=== PATIENT | female | born 2000 | race Caucasian/White ===

== ENCOUNTER 2025-08-16 10:40 | Outpatient (CLI) | payer OTHER, SELFPAY ==
--- NOTE | ~2025-08-16 | US_ITS ---
EXAMINATION: US pelvic complete w TV DATE: 08/16/2025 11:05 INDICATION: Pelvic and perineal pain. TECHNIQUE: Multiple transabdominal and transvaginal sonographic images of the pelvis were obtained. COMPARISON: None. FINDINGS: TRANSABDOMINAL ULTRASOUND: The uterus measures 8.2 x 4.8 x 3.4 cm. There is no free fluid in the pelvis. TRANSVAGINAL ULTRASOUND: The endometrial complex measures 9 mm in thickness. The right ovary measures 2.6 x 2.2 x 2.7 cm. The left ovary measures 2.6 x 2.8 x 1.4 cm. There is normal vascular flow in the ovaries. IMPRESSION: 1. Normal pelvis. Reviewed, dictated and finalized at location E. IMPRESSION: 1. Normal pelvis.
== END 2025-08-16 10:41 | disposition home or self-care (01) ==
LOC: GOSHIMG 10:42
PROVIDERS: PCP Nurse Practitioner Family; Visit Provider Nurse Practitioner Family
DX: R10.20 Pelvic and perineal pain unspecified side (principal)
CPT/HCPCS: 76830; 76856

== ENCOUNTER 2025-10-11 10:52 | Emergency (ER) | payer OTHER, SELFPAY ==
[2025-10-11 11:03] VITALS: BP 119/76; PULSE 93; RESP 16; TEMP 36.9; O2SAT 100
--- NOTE | 2025-10-11 11:28 | ED.URI ---
HPI - URI/Sore Throat General Chief Complaint: Upper Respiratory Infection Stated Complaint: COUGH/CONGESTION/SINUS PRESSURE Time Seen by Provider: 10/11/25 11:15 Source: patient and RN notes reviewed Mode of arrival: ambulatory Limitations: no limitations History of Present Illness HPI Narrative: 25-year-old female patient presents [facility] complaining of upper respiratory symptoms for 1 week. Patient reports symptoms are worsening. Patient reports worsening sinus pressure, mucopurulent nasal drainage, cough. Patient denies any other upper respiratory symptoms, fevers, eczema chills, nausea vomiting, diarrhea, chest pain, difficulty breathing, or any other symptoms. Patient has been taking Mucinex without relief. Related Data Allergies Allergy/AdvReac Type Severity Reaction Status Date / Time amoxicillin (From Augmentin) Allergy Intermediate Rash Verified 10/11/25 11:06 clavulanic acid (From Allergy Intermediate Rash Verified 10/11/25 11:06 Augmentin) Penicillins Allergy Intermediate Hives Verified 10/11/25 11:06 Review of Systems Review of Systems: CONSTITUTIONAL: Denies fever, chills, body aches, or sweats. EYES: Denies visual changes, redness, or discharge. ENT: Positive for rhinorrhea, congestion. Negative for sore throat, or otalgia. CARDIOVASCULAR: Denies chest pain, palpitations, or edema. RESPIRATORY: Positive for cough. Negative for dyspnea. GASTROINTESTINAL: Denies abdominal pain, nausea, vomiting, or diarrhea. GENITOURINARY: Denies dysuria or hematuria. SKIN: Denies rash or itching. MUSCULOSKELETAL: Denies back pain, joint pain, or myalgia. NEUROLOGIC: Denies headache, numbness, or weakness. PSYCHIATRIC: Denies anxiety or depression. All other systems reviewed are negative, except as documented in HPI. [facility] Past Medical History Medical History History of lipoma Allergies Family History Family History Mother Depression Anxiety Father Diabetes mellitus Sibling Depression Anxiety Grandparent Diabetes mellitus Heart disease History of cancer Thyroid disorder Alcoholism Breast cancer Other Carcinoma of colon Celiac disease Clotting disorder POTS (postural orthostatic tachycardia syndrome) Pancreatic cancer Social History Social History Smoking status: Never smoker Alcohol intake: current Drinks per week: 4 Substance use: never Substance use type: does not use Lack of Transportation: No Lack of Food: Never True Current Housing: I Have Housing Concerned About Future Housing: No Difficulty Paying Gas/Electric Bills: No Difficulty Paying for Meds: No Currently Unemployed: No Education: Bachelor's Degree Difficulty w/ Childcare or Family Care: No Comments At the time of my signature, I reviewed and agree with the nursing past medical, surgical, social, and family history. There is no relevant family history pertinent to the patient complaint. Exam Narrative: GENERAL: This is a well-nourished, well-developed adult, in no apparent distress. They are non ill-appearing, nontoxic appearing. HEAD: normocephalic, atraumatic. EYES: Sclera clear/white. Vision is grossly intact. Conjunctiva normal bilaterally. Extraocular movements intact. EARS: External ears normal, auditory canals clear and without drainage, TMs without erythema or perforation. Hearing grossly intact. NOSE: External nose normal with no obvious nasal discharge, nasal turbinates erythematous, no rhinorrhea. Maxillary and frontal sinus tenderness to palpation. THROAT: Mucous membranes moist, posterior pharynx erythematous without exudate. Uvula is midline. Postnasal drip present. NECK: Neck supple, non-tender without lymphadenopathy, masses or thyromegaly. CARDIOVASCULAR: Regular rate and rhythm without murmurs, gallops, or rubs. RESPIRATORY: Clear to auscultation. Breath sounds equal bilaterally. No wheezes, rales, or rhonchi. SKIN: warm, Dry, intact with no suspicious lesions or rash, good texture and turgor. NEURO: awake, alert, and oriented to person, place and time. There were no obvious focal neurologic abnormalities. EXTREMITIES: No joint tenderness, effusion, or edema noted. BACK: Nontender without deformity. Course Course Level of Care: Express Care Visit Vital Signs Vital signs: Vital Signs Temperature 98.4 F 10/11/25 11:03 Pulse Rate 93 10/11/25 11:03 Respiratory Rate 16 10/11/25 11:03 Blood Pressure 119/76 10/11/25 11:03 Pulse Oximetry 100 10/11/25 11:03 Temperature 98.4 F 10/11/25 11:03 Pulse Rate 93 10/11/25 11:03 Respiratory Rate 16 10/11/25 11:03 Blood Pressure 119/76 10/11/25 11:03 Pulse Oximetry 100 10/11/25 11:03 MDM MDM Narrative Medical decision making narrative: Given patient's length of symptoms and worsening symptoms, likely has a bacterial sinusitis. Will treat with doxycycline given allergy to penicillins. Discussed physical exam findings. Advised supportive measures and signs/symptoms to go to the ER. Pt is appropriate for outpt treatment and f/u. Differential Diagnosis Differential Diagnosis: Differential diagnostic considerations for upper respiratory infection include upper respiratory infection, croup, otitis media, sinusitis, viral infection, bronchitis, influenza, pharyngitis, strep, uvulitis. Discharge Plan Discharge Clinical Impression: Sinusitis Qualifiers: Sinusitis location: unspecified location Chronicity: acute Recurrence: non-recurrent Qualified Code(s): J01.90 - Acute sinusitis, unspecified Patient Disposition: Home Condition: Stable Instructions: Antibiotic Form, Sinusitis (ED) Additional Instructions: Take the antibiotics as directed and complete the course even if you start to feel better. You may use a Neti pot saline rinse 3 times a day with lukewarm distilled water Continue to take Tylenol or Motrin as needed for fever pains. Follow instructions on the bottle. Use a humidifier or vaporizer at night. Drink plenty of water. 8-10 glasses per day. Use flonase 2 times per day for 5 days then as needed Take mucinex 2 times per day and be sure to take with 8oz of water. Follow up with Primary provider in 3-5 days Please go to the ER if he develops any difficulty breathing, chest pain, vomiting, worsening symptoms, or any other concerns Patient Language: Mauritian Prescriptions: New doxycycline monohydrate 100 mg capsule 100 mg PO BID 7 Days Qty: 14 0RF Follow-up/Referrals: PHYSICIAN,UNIT SECRETARY [Primary Care Provider, Internal Medicine] Time of Disposition: 11:19
== END 2025-10-11 11:24 | disposition home or self-care (01) ==
DX: J01.90 Acute sinusitis, unspecified (principal)
CPT/HCPCS: 99213; G0463